=== PATIENT | female | born 1965 | race Caucasian/White ===

== ENCOUNTER 2016-09-16 05:25 | Emergency (ER) | payer BC ==
--- NOTE | ~2016-09-16 | CT2 ---
[facility]. [facility] A Service of [facility] RADIOLOGY TEXT RESULTS PATIENT: MARYBEL FISH LOCATION: SED : 61 UNIT #: [id number] AGE: [address]: David Campbell MD SEX: F ORDER DR: [id number] [place] [id number] E MR#: [id number] Acc #: [id number] NAME: MARYBEL FISH : 1965 SEX: F STUDY DATE/TIME: 09/16/2016 7:35 UNIT: SED ROOM: STUDY DESCRIPTION: CT Abd and Pelv W Cont Attending Physician: David Campbell M.D. Ordering Physician: Rad Ibarra M.D. Primary Care Physician: Trista Trotter A.P.R.N. MEDICAL IMAGING REPORT This report is preliminary unless electronic signature is present. EXAM Abdomen and pelvis CT with contrast HISTORY Left lower quadrant abdominal pain radiating to the back with nausea. The pain is spasmodic. Symptoms onset today. TECHNIQUE Axial images were obtained with oral and intravenous contrast. 100 mL of Isovue was used. This CT exam was performed with one or more of the following radiation dose reduction techniques: Automatic exposure control, adjustment of mA and/or kV according to patient size, and iterative reconstruction. FINDINGS The study is compared to a previous scan from 05/07/2016. Small hepatic cysts are noted unchanged from the previous scan. Otherwise, no upper abdominal solid organ abnormalities are seen. No distended bowel loops are noted. There is no evidence of retroperitoneal adenopathy or ascites. Soft tissue fullness is seen in the rectum unchanged from the previous examination. This could reflect internal hemorrhoids. Correlate with rectal examination. Diverticulosis is seen in the sigmoid without evidence of diverticulitis. IMPRESSION 1. Sigmoid diverticulosis without evidence of diverticulitis. 2. Soft tissue fullness in the rectum that has been stable over previous CT scans possibly reflecting large internal hemorrhoids. 3. Simple hepatic cysts. 4. No acute or inflammatory changes are seen in the abdomen or pelvis. [facility] A Service of [facility] RADIOLOGY TEXT RESULTS PATIENT: MARYBEL FISH LOCATION: SED : 61 UNIT #: [id number] AGE: [address]: David Campbell MD SEX: F ORDER DR: Dictated by... Joshua Hoffman M.D. THIS IS AN ELECTRONICALLY VERIFIED REPORT Joshua Hoffman M.D. at 09/16/2016 1:27 PM RLF/shanna TD: 09/16/2016 11:45 JOB #: [id number] MEDICAL IMAGING REPORT Page 1 of 1
[~2016-09-16 05:25] MED LIST: ALPRAZOLAM PO; ASPIRIN PO; ASPIRIN81 M2 PO; BACTRIM DS TABL1 TA1 PO; CYMBALTA PO; DICLOFENAC PO; FLEXERIL PO; FLEXERIL10 MG PO; METOPROLOL SUC100 MG PO; METRONIDAZOLE PO; NEURONTIN PO; NEXIUM PO; OMEPRAZOLE20 M2 PO; PERCODAN PO; ZOCOR10 MG PO; ZOFRAN ODT4 MG/UDTAB SL
[2016-09-16 06:20] LABS: URINE SOURCE CLEAN CATCH
[2016-09-16 06:22] LABS: URINE APPEARANCE CLEAR; URINE BLOOD TRACE-INTACT (NEG); URINE COLOR YELLOW; URINE GLUCOSE NEG (NORM); URINE KETONE NEG (NEG); URINE LEUKOCYTE ESTERASE NEG (NEG); URINE NITRATE NEG (NEG); URINE PROTEIN TRACE (NEG); URINE SPECIFIC GRAVITY >=1.030 (1.003-1.035); URINE UROBILINOGEN 0.2 MG/DL (NORM)
[2016-09-16 06:23] LABS: BASOPHIL# 0.1 X10e3 (0-0.3); BASOPHIL% 0.6 % (0-2.5); DIFF IND NO; EOSINOPHIL# 0.3 X10e3 (0-0.7); EOSINOPHIL% 3.2 % (0.0-7.0); HEMATOCRIT 41.8 % (35.0-45.0); HEMOGLOBIN 14.2 gm/dL (12.0-16.0); LYMPHOCYTE# 2.9 X10e3 (1.0-3.5); LYMPHOCYTE% 29.1 % (17.0-45.0); MEAN CELL VOLUME 86.7 FL (83-96); MEAN CORPUSCULAR HEMOGLOBIN 29.4 PG (28-34); MEAN CORPUSCULAR HGB CONC 33.9 g/dL (30-36); MEAN PLATELET VOLUME 7.6 FL (6.5-11.5); MICRO INDICATED? YES; MONOCYTE# 0.7 X10e3 (0-1.0); NEUTROPHIL# 6.1 X10e3 (1.5-7.1); NEUTROPHIL% 60.1 % (40-75); PLATELET COUNT 356 X10e3 (140-420); RED BLOOD COUNT 4.82 X10e (3.90-5.30); RED CELL DISTRIBUTION WIDTH 12.6 % (11.0-15.5); URINE BILIRUBIN NEG (NEG); WHITE BLOOD COUNT 10.1 X10e3 (4.0-10.5)
[2016-09-16 06:27] LABS: CULTURE INDICATED? YES; URINE BACTERIA 1+ (NEG); URINE CRYSTALS CALCIUM OXALATE /[HPF]; URINE SQUAMOUS EPITHELIAL CELL OCCAS /[HPF]
[2016-09-16 06:28] LABS: URINE MUCUS PRESENT
[2016-09-16 06:40] LABS: ALKALINE PHOSPHATASE 101 U/L (32-92); ALT (SGPT) 19 U/L (10-40); AST (SGOT) 17 U/L (10-42); BILIRUBIN, DIRECT <0.1 mg/dL (0.0-0.2); BILIRUBIN,INDIRECT 0.3 mg/dL (0.0-0.9); BILIRUBIN,TOTAL 0.4 mg/dL (0.2-2.0); BLOOD UREA NITROGEN 13 mg/dL (9-23); BUN/CREATININE RATIO 18.57; CALCIUM SERUM 9.4 mg/dL (8.4-10.2); CARBON DIOXIDE 24 mmol/L (22-31); CHLORIDE 106 mmol/L (100-111); CREATININE SERUM 0.7 mg/dL (0.6-1.4); GLOM FILT RATE Estimated 99.6 mL/min (>60); GLUCOSE FASTING 106 mg/dL (70-110); LIPASE 39 U/L (22-51); POTASSIUM 3.7 mmol/L (3.5-5.1); PROTEIN TOTAL SERUM 7.6 g/dL (6.0-8.3); SODIUM 139 mmol/L (135-145)
== END 2016-09-16 09:22 | disposition home or self-care (01) ==
LOC: SED 05:25
PROVIDERS: Emergency Medicine
DX: K57.32 Diverticulitis of large intestine without perforation or abscess without bleeding (principal); K64.8 Other hemorrhoids; F41.9 Anxiety disorder, unspecified
CPT/HCPCS: 36415; 74177; 80048; 80076; 81003; 83690; 85025; 87086; 96361; 96374; 99284; J2405; Q9967

== ENCOUNTER → 2016-09-24 | Outpatient (CLI) | payer BC ==
--- NOTE | ~2016-09-24 | US85 ---
[facility] A Service of [facility] RADIOLOGY TEXT RESULTS PATIENT: MARYBEL FISH LOCATION: SNIV : 63 UNIT #: [id number] AGE: [address]: THU VEGA MD SEX: F ORDER DR: [id number] [address] [address] [id number] O MR#: [id number] Acc #: [id number] NAME: MARYBEL FISH : 1965 SEX: F STUDY DATE/TIME: 09/24/2016 12:54 UNIT: SNIV ROOM: STUDY DESCRIPTION: [facility] or [facility] St[facility] Attending Physician: Bravo Vega M.D. Referring Physician: Bravo Vega M.D. Ordering Physician: Bravo Vega M.D. Primary Care Physician: Trista Trotter A.P.R.N. MEDICAL IMAGING REPORT This report is preliminary unless electronic signature is present. EXAM Lower extremity venous ultrasound unilateral 09/24/2016 HISTORY Right foot swelling and pain for 3 days. No history of DVT. Takes aspirin on and off. TECHNIQUE Venous ultrasound examination of the right lower extremity was performed using grayscale, spectral Doppler and color flow Doppler imaging. FINDINGS The examination is negative. There is no evidence of right lower extremity deep venous thrombus from the groin to the lower calf. Visualized greater saphenous vein is also patent. IMPRESSION Negative examination. No evidence of right lower extremity deep venous thrombosis. Dictated by... Rad Payton M.D. THIS IS AN ELECTRONICALLY VERIFIED REPORT Rad Payton M.D. at 09/25/2016 9:39 PM DEVORA/shanna TD: 09/24/2016 15:36 JOB #: [id number] MEDICAL IMAGING REPORT [facility] A Service [facility] RADIOLOGY TEXT RESULTS PATIENT: MARYBEL FISH LOCATION: SNIV : 61 UNIT #: [id number] AGE: [address]: THU VEGA MD SEX: F ORDER DR: Page 1 of 1
== END | disposition home or self-care (01) ==
LOC: SNIV 12:39
DX: R60.0 Localized edema (principal)
CPT/HCPCS: 93971